=== PATIENT | female | born 1940 | race Caucasian/White ===

== ENCOUNTER 2016-11-10 11:03 | Outpatient (CLI) | payer MEDICARE, OTHER | END 2016-11-10 11:04 | LOC: LAB 11:03 | PROVIDERS: ATTEND Physician Assistant | DX: E11.9 Type 2 diabetes mellitus without complications (principal); E83.52 Hypercalcemia | CPT/HCPCS: 36415; 82330; 83036 ==

== ENCOUNTER 2017-01-19 13:48 | Outpatient (CLI) | payer MEDICARE, OTHER | END 2017-01-19 13:50 | LOC: CARD 13:48 | PROVIDERS: ATTEND Internal Medicine Cardiovascular Disease | DX: I25.10 Atherosclerotic heart disease of native coronary artery without angina pectoris (principal); I10 Essential (primary) hypertension; E78.5 Hyperlipidemia, unspecified; E11.9 Type 2 diabetes mellitus without complications; Z86.73 Personal history of transient ischemic attack (TIA), and cerebral infarction without residual deficits; Z95.2 Presence of prosthetic heart valve | CPT/HCPCS: G0463 ==

== ENCOUNTER 2017-06-02 13:42 | Outpatient (CLI) | payer MEDICARE, OTHER ==
[2017-06-02 14:05] LABS: BASOPHILS % 0.5 (0.0-1.5); EOSINOPHILS % 2.2 % (0.0-6.8); MEAN CORPUSCULAR HEMOGLOBIN 29.4 pg (28.0-34.0); MEAN CORPUSCULAR VOLUME 88.1 fl (80.0-100.0); MONOCYTES % 3.6 % (0.0-11.0); NEUTROPHILS # 4.3 # k/uL (1.4-7.7)
[2017-06-02 14:57] LABS: eGFR (African) > 60; eGFR (Non-African) > 60
== END 2017-06-02 13:44 ==
LOC: LAB 13:42
PROVIDERS: ATTEND Physician Assistant
DX: E11.9 Type 2 diabetes mellitus without complications (principal); R53.83 Other fatigue; E55.9 Vitamin D deficiency, unspecified
CPT/HCPCS: 36415; 80053; 82306; 82607; 83036; 84443; 85025

== ENCOUNTER 2017-06-10 08:15 | Outpatient (CLI) | payer MEDICARE, OTHER | END 2017-06-10 08:16 | LOC: LAB 08:15 | PROVIDERS: ATTEND Physician Assistant | DX: E83.52 Hypercalcemia (principal) | CPT/HCPCS: 83970 ==

== ENCOUNTER 2017-07-13 11:27 | Outpatient (CLI) | payer MEDICARE, OTHER ==
[2017-07-13 13:05] LABS: BASOPHILS % 0.3 (0.0-1.5); EOSINOPHILS % 2.1 % (0.0-6.8); MEAN CORPUSCULAR HEMOGLOBIN 30.2 pg (28.0-34.0); MEAN CORPUSCULAR VOLUME 88.3 fl (80.0-100.0)
[2017-07-13 13:41] LABS: eGFR (African) > 60; eGFR (Non-African) > 60
== END 2017-07-13 11:30 ==
LOC: CARD 11:27
PROVIDERS: ATTEND Internal Medicine Cardiovascular Disease
DX: Z95.2 Presence of prosthetic heart valve (principal); I25.10 Atherosclerotic heart disease of native coronary artery without angina pectoris; R53.83 Other fatigue; I10 Essential (primary) hypertension; E78.5 Hyperlipidemia, unspecified; E11.9 Type 2 diabetes mellitus without complications; Z86.73 Personal history of transient ischemic attack (TIA), and cerebral infarction without residual deficits
CPT/HCPCS: 36415; 80053; 84443; 85025; G0463

== ENCOUNTER 2017-07-19 13:39 | Outpatient (CLI) | payer MEDICARE, OTHER ==
--- NOTE | 2017-07-19 17:56 | Diagnostic Imaging Report ---
CITLALI MCCANN [facility] [address] [facility].[address] [address] Report Submission Date: July 19, 2017 2:46:01 PM CDT Patient Study Name: LENIN GOMEZ Date: July 19, 2017 2:00:13 PM CDT Modality Type: DX Gender: F Description: UPPER EXTREMITY : 44 Institution: [facility] Physician: CITLALI MCCANN Examination: Plain film left forearm History: PAIN X 2 DAYS AFTER FALL (Hx) Comparison exams: None available Findings: 2 views of the left radius and ulna demonstrates osteopenia. Questionable lucencies/irregularities involving the radial wrist articulation. No evidence for other cortical abnormality. No soft tissue abnormality. Impression: Questionable cortical irregularity involving the wrist radial articular margin. Consider obtaining targeted CT to further evaluate. Electronically signed on July 19, 2017 2:46:01 PM CDT by: Horacio NAIR
--- NOTE | 2017-07-19 17:56 | Diagnostic Imaging Report ---
KLAUS MCCANNRILL [facility] [address] [facility] [address] [address] Report Submission Date: July 19, 2017 2:43:14 PM CDT Patient Study Name: LENIN GOMEZ Date: July 19, 2017 1:51:23 PM CDT Modality Type: DX Gender: F Description: UPPER EXTREMITY : 44 Institution: [facility] Physician: CITLLAI MCCANN Examination: Plain film wrists History: PAIN X 2 DAYS AFTER FALL (Hx) Comparison exams: None available Findings: 3 views the right and left wrists demonstrates diffuse osteopenia. Articular degenerative changes. Questionable cortical irregularity involving the radial articulation. Remaining cortical margins are without other gross irregularity. No soft tissue abnormality. Impression: Osteopenia and articular degenerative changes. Questionable cortical irregularity involving the left radial articular margin. Consider obtaining targeted CT to further evaluate. Electronically signed on July 19, 2017 2:43:14 PM CDT by: CITLALI Irizarry [facility] [address] [facility] [address] [address] Report Submission Date: July 19, 2017 2:43:14 PM CDT Patient Study Name: LENIN GOMEZ Date: July 19, 2017 1:51:23 PM CDT Modality Type: DX Gender: F Description: UPPER EXTREMITY : 42 Institution: [facility] Physician: CITLALI MCCANN Examination: Plain film wrists History: PAIN X 2 DAYS AFTER FALL (Hx) Comparison exams: None available Findings: 3 views the right and left wrists demonstrates diffuse osteopenia. Articular degenerative changes. Questionable cortical irregularity involving the radial articulation. Remaining cortical margins are without other gross irregularity. No soft tissue abnormality. Impression: Osteopenia and articular degenerative changes. Questionable cortical irregularity involving the left radial articular margin. Consider obtaining targeted CT to further evaluate. Electronically signed on July 19, 2017 2:43:14 PM CDT by: Horacio NAIR
--- NOTE | 2017-07-19 17:57 | Diagnostic Imaging Report ---
CITLALI MCCANN [facility] [address] [facility].[address] [address] Report Submission Date: July 19, 2017 2:57:10 PM CDT Patient Study Name: LENIN GOMEZ Date: July 19, 2017 2:10:40 PM CDT Modality Type: DX Gender: F Description: SPINE : 44 Institution: [facility] Physician: CITLALI MCCANN Examination: Plain film lumbar spine History: PAIN X 2 DAYS AFTER FALL (Hx) Findings: 3 views of the lumbar spine demonstrate normal height. No anterior compression. Posterior fixation L3/L4 with disc replacement L4/L5. Angulation L4 /L5. Facet degenerative changes. Anterior osteophytes. Atherosclerotic disease involving the abdominal aorta. Impression: Degenerative changes and prior surgical fixation. No compression deformity. L4/L5 angulation - correlate with any older exams to determine chronicity. Electronically signed on July 19, 2017 2:57:10 PM CDT by: Horacio NAIR
--- NOTE | 2017-07-19 17:58 | Diagnostic Imaging Report ---
CITLALI MCCANN [facility] [address] [facility] [address] [address] Report Submission Date: July 19, 2017 2:47:52 PM CDT Patient Study Name: LENIN GOMEZ Date: July 19, 2017 2:22:46 PM CDT Modality Type: DX Gender: F Description: UPPER EXTREMITY : 44 Institution: [facility] Physician: CITLALI MCCANN Examination: Plain film right hand History: PAIN X 2 DAYS AFTER FALL (Hx) Comparison exams: None available Findings: 3 views the hand demonstrates osteopenia. Articular degenerative changes. No fracture. No dislocation. No soft tissue abnormality. Impression: Osteopenia and degenerative changes. No acute osseous abnormality Electronically signed on July 19, 2017 2:47:52 PM CDT by: Horacio NAIR
== END 2017-07-19 13:40 ==
LOC: RAD 13:39
PROVIDERS: ATTEND Physician Assistant
DX: M79.602 Pain in left arm (principal); M25.539 Pain in unspecified wrist; M54.5 Low back pain; W19.XXXA Unspecified fall, initial encounter; Y99.9 Unspecified external cause status; M79.644 Pain in right finger(s)
CPT/HCPCS: 72100; 73090; 73130

== ENCOUNTER 2017-08-11 09:14 | Outpatient (CLI) | payer MEDICARE, OTHER ==
--- NOTE | 2017-08-11 17:35 | Diagnostic Imaging Report ---
CITLALI MCCANN [facility] [address] [facility] [address] [place] [address]. [address] Report Submission Date: August 11, 2017 11:48:28 AM CDT Patient Study Name: LENIN GOMEZ Date: August 11, 2017 9:28:15 AM CDT Modality Type: CT\SR Gender: F Description: CT ARM W/O CONTRAST : 44 Institution: [facility] Physician: CITLALI MCCANN Examination: CT right extremity. History: RT WRIST PAIN AFTER FALL (Hx) / ITS.REASON RT WRIST PAIN AFTER FALL ( DICOM Hx) Comparison exams: Plain film dated 19 Jul 2017 Technique: Axial imaging was sagittal and coronal reconstruction. Findings: Cortical margins demonstrate articular degenerative changes. Scattered ossific spurring. No cortical lucency or displacement. No evidence for widening of the scapholunate space. Impression: Articular degenerative changes. No evidence for cortical lucency/ fracture. If discomfort persist, consider further evaluation with MRI. Electronically signed on August 11, 2017 11:48:28 AM CDT by: Horacio NAIR
== END 2017-08-11 09:16 ==
LOC: RAD 09:14
PROVIDERS: ATTEND Physician Assistant
DX: M25.531 Pain in right wrist (principal)
CPT/HCPCS: 73200

== ENCOUNTER 2017-09-28 11:43 | Outpatient (CLI) | payer MEDICARE, OTHER ==
[2017-09-28 14:00] LABS: eGFR (African) > 60; eGFR (Non-African) > 60
== END 2017-09-28 11:48 ==
LOC: CARD 11:43
PROVIDERS: ATTEND Internal Medicine Cardiovascular Disease
DX: Z95.2 Presence of prosthetic heart valve (principal); I25.10 Atherosclerotic heart disease of native coronary artery without angina pectoris; Z86.79 Personal history of other diseases of the circulatory system; I10 Essential (primary) hypertension; E78.5 Hyperlipidemia, unspecified; E11.9 Type 2 diabetes mellitus without complications; E83.52 Hypercalcemia
CPT/HCPCS: 36415; 80048; 80061; G0463

== ENCOUNTER 2017-10-25 11:33 | Outpatient (CLI) | payer MEDICARE, OTHER ==
[2017-10-26 08:51] LABS: eGFR (African) > 60; eGFR (Non-African) > 60
== END 2017-10-25 11:35 ==
LOC: LAB 11:33
PROVIDERS: ATTEND Internal Medicine Cardiovascular Disease
DX: Z95.2 Presence of prosthetic heart valve (principal); I25.10 Atherosclerotic heart disease of native coronary artery without angina pectoris
CPT/HCPCS: 36415; 80048